=== PATIENT | male | born 1995 | race Caucasian/White ===

== ENCOUNTER 2019-03-01 05:35 | Emergency (ER) | payer BC ==
[~2019-03-01] VITALS: Ht 182.9 cm; Wt 83.9 kg
[2019-03-01 06:20] LABS: HEMATOCRIT 41.1 % (42.0-52.0); NUCLEATED RBCS 0 /100WBC; RDW-CV 13.3 % (10.5-14.5)
[2019-03-01 06:26] LABS: INR 1.1; PROTIME 11.2 Seconds (9.20-11.50)
[2019-03-01 06:34] LABS: ANION GAP 5 mmol/L (7-16); BUN 16 mg/dL (7-18); CALCIUM 9.2 mg/dL (8.5-10.1); CHLORIDE 103 mmol/L (98-107); CO2 29 mmol/L (21-32); CREATININE 1.1 mg/dL (0.6-1.3); GLUCOSE 118 mg/dL (70-99); POTASSIUM 4.1 mmol/L (3.5-5.1); SODIUM 137 mmol/L (136-145); TROPONIN-I LEVEL <0.06 ng/mL (<0.06)
[2019-03-01 06:35] LABS: ABSOLUTE EOSINOPHILS 0.2 thou/uL (0.0-0.7); ABSOLUTE LYMPHOCYTES 1.6 thou/uL (0.8-5.3); ABSOLUTE NEUTROPHILS 12.9 thou/uL (1.6-8.1); ALBUMIN 4.4 g/dL (3.4-5.0); ALKALINE PHOSPHATASE 71 U/L (46-116); BASOPHILS 0.2 %; HEMOGLOBIN 13.9 gm/dL (14.0-18.0); LIPASE 71 U/L (73-393); LYMPHOCYTES 10.2 %; MCH 29.8 pg (26.0-34.0); MCHC 33.8 g/dL (28.0-37.0); MONOCYTES 6.3 %; MPV 8.7 fl. (7.2-11.1); NT-PRO BRAIN NAT PEPTIDE 59 pg/mL (<300); PLATELET COUNT* 184 thou/uL (150-400); POLYS 82.3 %; RBC 4.68 mil/uL (4.50-6.00); SGOT 80 U/L (15-37); SGPT 101 U/L (30-65); TOTAL BILIRUBIN 0.9 mg/dL (<0.1-1.0); TOTAL PROTEIN 7.1 g/dL (6.4-8.2); WBC 15.6 thou/uL (4.0-11.0)
[2019-03-01 08:09] VITALS: BP 118/62
--- NOTE | 2019-03-02 11:09 | EKG ---
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 : 1995 Requested By: Екатерина Gates Order Number: [id number] MD: Panchito Oviedo Measurements Intervals [place] Rate: 47 P: 62 [place]: 132 QRS: 52 QRSD: 104 T: 32 QT: 437 QTc: 387 Interpretive Statements Sinus bradycardia ST elev, probable normal early repol pattern No previous ECG available for comparison Electronically Signed On 03-02-2019 11:08:50 CDT by Panchito Oviedo [email or web address] <ELECTRONICALLY SIGNED> By: Panchito Oviedo MD, [facility] 03/02/19 [id number] Panchito Oviedo MD, FACC /EPI
== END 2019-03-01 08:09 | disposition home or self-care (01) ==
LOC: M.ERS 05:35
PROVIDERS: Emergency Medicine
DX: R55 Syncope and collapse (principal); L53.9 Erythematous condition, unspecified; S01.111A Laceration without foreign body of right eyelid and periocular area, initial encounter; W18.39XA Other fall on same level, initial encounter; Y93.89 Activity, other specified; Y92.89 Other specified places as the place of occurrence of the external cause; Y99.8 Other external cause status